=== PATIENT | female | born 1995 | race Caucasian/White ===

== ENCOUNTER 2022-05-02 21:01 | Emergency (ER) | payer OTHER ==
[~2022-05-02] VITALS: Ht 162.6 cm; Wt 68.0 kg
--- NOTE | 2022-05-02 21:15 | NUR ---
BIBSELF C/O SOB AND CP SINCE SATURDAY MORNING. PATIENT IS AAOX4. PAIN IS IN LEFT SIDE OF CHEST, PRESSURED IN PRESENTATION. COMES AND GOES. PLACED COMFORTABLY IN BED. VITALS CHECKED.
--- NOTE | 2022-05-02 22:10 | NUR ---
SEEN BY DR KNOX AT BEDSIDE.
--- NOTE | 2022-05-02 22:21 | NUR ---
CXR DONE AT BEDSIDE.
--- NOTE | 2022-05-02 22:25 | NUR ---
EKG DONE AT BEDSIDE.
[2022-05-02 23:03] LABS: BASOPHILS % (AUTO) 0.5 % (0.0-2.0); EOSINOPHILS % (AUTO) 0.4 % (0.0-6.0); HEMATOCRIT 45 % (33-45); HEMOGLOBIN 15.2 g/dL (11.5-14.8); LYMPHOCYTES # (AUTO) 1.9 K/uL (0.8-4.8); LYMPHOCYTES % (AUTO) 23.3 % (20.0-44.0); MEAN CORPUSCULAR HGB CONC 34 g/dl (31.0-36.0); MEAN CORPUSCULAR VOLUME 96 fL (82-100); MONOCYTES # (AUTO) 0.4 K/uL (0.1-1.30); MONOCYTES % (AUTO) 4.8 % (2.0-12.0); NEUTROPHILS # (AUTO) 5.6 K/uL (1.8-8.9); PLATELET COUNT (AUTO) 259 K/uL (150-450); RED BLOOD CELL COUNT(AUTO) 4.71 MIL/uL (4.0-5.2); WHITE BLOOD COUNT (AUTO) 7.9 K/uL (4.3-11.0)
[2022-05-02 23:19] LABS: D-DIMER 0.19 mg/L(FEU (0.17-0.50)
--- NOTE | 2022-05-02 23:52 | NUR ---
FOLLOWED UP WITH LAB REGARDING CHEMISTRY
[2022-05-02 23:54] LABS: CALCIUM, SERUM 9.8 mg/dL (8.5-10.1); CARBON DIOXIDE 20 mmol/L (21-32); CHLORIDE 103 mmol/L (98-107); CREATININE 0.8 mg/dL (0.6-1.3); GLUCOSE 99 mg/dL (74-106); POTASSIUM 3.3 mmol/L (3.5-5.1); SODIUM SERUM 138 mmol/L (136-145); UREA NITROGEN, BLOOD 12 mg/dL (7-18)
[2022-05-02 23:59] LABS: ALANINE AMINOTRANSFERASE 11 U/L (12-78); ALBUMIN 4.8 g/dL (3.4-5.0); ALKALINE PHOSPHATASE 62 U/L (46-116); ASPARTATE AMINOTRANSFERASE 10 U/L (15-37); BILIRUBIN,DIRECT 0.2 mg/dL (0.0-0.2); BILIRUBIN,TOTAL 0.8 mg/dL (0.2-1.0); TOTAL PROTEIN, SERUM 7.9 g/dL (6.4-8.2)
--- NOTE | 2022-05-03 00:49 | NUR ---
FOLLOWED UP WITH LAB REGARDING TROPONIN REDRAW. PHLEB ON THE WAY.
--- NOTE | 2022-05-03 01:57 | NUR ---
Patient discharged to home in stable condition. Written and verbal after care instructions given. Patient verbalizes understanding of instruction.
[2022-05-03 01:58] VITALS: BP 133/84
== END 2022-05-03 01:58 | disposition home or self-care (01) ==
LOC: ER 21:05
DX: R07.89 Other chest pain (principal); F41.9 Anxiety disorder, unspecified
CPT/HCPCS: 36415; 71045-TC; 80048-TC; 80076-TC; 84484-TC; 85025-TC; 85378-TC; 85730-TC